=== PATIENT | male | born 1970 | race Caucasian/White ===

== ENCOUNTER 2020-08-28 22:49 | Inpatient (IN) | payer BC ==
[2020-08-28] MEDS ORDERED: Calcium Carbonate 500 MG ChewTAB PO PRN (22:52)
[2020-08-28] MEDS ORDERED: Guaifenesin DM 100-10/5 ML UDCUP PO PRN (22:52)
[2020-08-28] MEDS ORDERED: Zolpidem Tartrate 5 MG TAB PO PRN (22:52)
[2020-08-28] MEDS ORDERED: Dextrose 50% Abboject 50 ML SYRINGE SLOW IVP PRN (22:52)
[2020-08-28] MEDS ORDERED: Ondansetron PF 4 MG/2 ML Vial IVP PRN (22:52)
[2020-08-28] MEDS ORDERED: HYDROcodone/Acetaminophen 5/325 mg Tablet PO PRN ×2 (22:52)
[2020-08-28] MEDS ORDERED: Dextrose 5% in Water 1,000 ML IV PRN (22:52)
[2020-08-28] MEDS ORDERED: Ventolin HFA Inhaler 60 PUFF INHALER INH PRN (22:54)
[2020-08-28] MEDS: cefTRIAXone\\ROCEPHIN 1 GM in Sodium Chloride 0.9% 100 ML IVPB SCH (23:33)
[2020-08-28 23:55] LABS: ALT (SGPT) 31 U/L (8-55); AST (SGOT) 22 U/L (5-34); Albumin 3.5 g/dL (3.5-5.0); Alkaline Phosphatase 68 U/L (40-110); Anion Gap 15 mmol/L (10-20); BUN (Urea Nitrogen) 11 mg/dL (8.9-20.6); Bilirubin, Total 0.3 mg/dL (0.2-1.2); Calc. Creatinine Clearance 0 mL/min (70-130); Calcium 8.9 mg/dL (7.8-10.44); Carbon Dioxide 18 mmol/L (22-29); Chloride 108 mmol/L (98-107); Globulin 3.5 g/dL (2.4-3.5); Glucose 212 mg/dL (70-105); Potassium 4.4 mmol/L (3.5-5.1); Sodium 137 mmol/L (136-145)
[2020-08-29] MEDS: Azithromycin 500 MG in Sodium Chloride 0.9% 250 ML 250 ML IVPB SCH ×2 (00:26→22:59)
[2020-08-29] MEDS ORDERED: Sodium Chloride 0.9% 250 ML IVPB SCH (01:45)
[2020-08-29] MEDS: methylPREDNISolone Sod Succ/PF 125 MG/2 ML VIAL IVP SCH ×2 (02:34→03:30)
[2020-08-29] MEDS: Famotidine/PF 20 mg/2ml Vial SLOW IVP SCH ×2 (02:34→03:30)
[2020-08-29] MEDS: diphenhydrAMINE 50 MG/ML VIAL IVP SCH ×2 (02:35→03:30)
[2020-08-29] MEDS: HumaLOG 300 UNITS/3 ML VIAL SC PRN ×2 (04:40→20:17)
[2020-08-29] MEDS ORDERED: Guaifenesin DM 100-10/5 ML UDCUP ONE (04:54)
[2020-08-29] MEDS ORDERED: REMDESIVIR (EUA) 200 MG in Sodium Chloride 0.9% 250 ML 210 ML IV SCH ×3 (05:00→09:00)
[2020-08-29] MEDS: Acetaminophen 325 MG TAB PO PRN ×2 (05:38→18:00)
[2020-08-29 05:45] LABS: #Monocytes 0.4 10x3/uL (0.0-1.1); #Neutrophils 19.2 10x3/uL (1.5-8.4); %Basophils 0.2 % (0.0-2.0); %Lymphocytes 2.6 % (18.0-47.0); %Monocytes 1.9 % (0.0-10.0); %Neutrophils 94.2 % (40.0-75.0); Hemoglobin 13.5 g/dL (13.5-17.5); Mean Corpuscular HGB CONC 33.8 g/dL (32.0-36.0); Mean Corpuscular Hemoglobin 29.7 pg (27.0-33.0); Mean Corpuscular Volume 87.9 fl (81.2-95.1); Mean Platelet Volume 11.6 fl (7.4-10.4); Platelet Count 307 10x3/uL (150-450); RBC Distribution Width 12.6 % (11.5-14.5); Red Blood Cell (RBC) Count 4.55 10x6/uL (4.32-5.72); White Blood Cell (WBC) Count 20.4 10x3/uL (3.5-10.5)
[2020-08-29 06:06] LABS: ALT (SGPT) 30 U/L (8-55); AST (SGOT) 23 U/L (5-34); Albumin 3.3 g/dL (3.5-5.0); Alkaline Phosphatase 73 U/L (40-110); Anion Gap 14 mmol/L (10-20); BUN (Urea Nitrogen) 13 mg/dL (8.9-20.6); Bilirubin, Total 0.2 mg/dL (0.2-1.2); CRP (Inflammatory) 23.27 mg/dL (= or < 0.5); Calc. Creatinine Clearance 159 mL/min (70-130); Calcium 8.8 mg/dL (7.8-10.44); Carbon Dioxide 19 mmol/L (22-29); Chloride 109 mmol/L (98-107); Globulin 3.6 g/dL (2.4-3.5); Glucose 227 mg/dL (70-105); Potassium 4.2 mmol/L (3.5-5.1); Protein, Total 6.9 g/dL (6.0-8.3); Sodium 138 mmol/L (136-145)
[2020-08-29 06:22] LABS: Bilirubin Neg (Negative); Blood, Urine Negative (Negative); Clarity Clear (Clear); Glucose, Urine (Dipstick) >=1000 mg/dL (Negative); Ketone, Urine Negative (Negative); Leukocyte Negative (Negative); Nitrite Negative (Negative); Protein, Urine (Dipstick) 15 mg/dl (Neg-Trace); Specific Gravity, Urine 1.005 (1.002-1.036); Urobilinogen Normal mg/dL (Less than 2)
[2020-08-29 06:33] LABS: RBC/HPF None Seen HPF (0-3); Squamous Epithelial None Seen HPF (0-3); WBC/HPF None Seen HPF (0-3)
[2020-08-29 06:34] LABS: Bacteria/HPF None Seen HPF (None Seen); Strep pneumo Urine Ag NEGATIVE (NEGATIVE)
[2020-08-29 06:35] LABS: Legionella Urinary Ag Negative (Negative)
[2020-08-29] MEDS ORDERED: Labetalol HCl 100 MG/20 ML VIAL SLOW IVP PRN (06:57)
[2020-08-29] MEDS ORDERED: GUAIFENESIN SF SOLN 200 MG/10 ML UDCUP PO PRN (06:57)
[2020-08-29] MEDS ORDERED: Cepastat Lozenges 1 LOZ PO PRN (06:57)
[2020-08-29] MEDS ORDERED: Loratadine 10 MG TAB PO PRN (06:57)
[2020-08-29] MEDS ORDERED: Benzonatate 100 MG CAP PO PRN (06:57)
[2020-08-29] MEDS ORDERED: Ondansetron ODT 4 MG TAB PO PRN (06:57)
[2020-08-29] MEDS ORDERED: Sodium Chloride 0.65% Nasal 44 ML BOT EA NARE PRN (06:57)
[2020-08-29] MEDS ORDERED: Loperamide HCl 2 MG CAP PO PRN (06:57)
[2020-08-29] MEDS ORDERED: Eucerin (Mineral Oil/Petrolatum,White) 30 gm Jar TOP PRN (06:57)
[2020-08-29] MEDS: Zinc Gluconate 50 MG TAB PO SCH (08:35)
[2020-08-29] MEDS: Dexamethasone 4 mg/ml Vial SLOW IVP SCH (08:35)
[2020-08-29] MEDS: Aspirin 81 mg Enteric Coated Tablet PO SCH (08:35)
[2020-08-29] MEDS: Cholecalciferol 1,000 UNITS (25 MCG) TAB PO SCH (08:35)
[2020-08-29] MEDS: Metoprolol Tartrate 25 MG TAB PO SCH ×2 (08:35→20:17)
[2020-08-29] MEDS: Ascorbic Acid 500 mg Chewable Tablet PO SCH (08:35)
[2020-08-29] MEDS: Enoxaparin Sodium 40 MG/0.4 ML SYRINGE SC SCH ×2 (08:35→20:17)
[2020-08-29] MEDS ORDERED: Enoxaparin Sodium 40 MG/0.4 ML SYRINGE SC SCH (09:00)
[2020-08-29] MEDS: Levothyroxine 150 MCG TAB PO SCH (10:24)
[2020-08-29 14:07] LABS: Hemoglobin A1c 6.1 % (4.0-6.0)
[2020-08-29] MEDS ORDERED: Sodium Chloride 0.9% 100 ML ONE (22:22)
[2020-08-29] MEDS: cefTRIAXone\\ROCEPHIN 1 GM in Sodium Chloride 0.9% 100 ML IVPB SCH (23:00)
[2020-08-30] MEDS: Lorazepam 2 MG/ML VIAL SLOW IVP PRN (00:30)
[2020-08-30] MEDS ORDERED: Morphine 4 MG/ML VIAL SLOW IVP PRN (02:34)
[2020-08-30] MEDS ORDERED: Sodium Chloride 0.9% 500 ML IV SCH (02:50)
[2020-08-30] MEDS ORDERED: Rocuronium Bromide 10 MG/ML (10ML VIAL) ONE ×3 (03:02→08:00)
[2020-08-30] MEDS ORDERED: fentaNYL Citrate/PF 2,000 MCG in Sodium Chloride 0.9% 60 ML IV PRN (03:09)
[2020-08-30] MEDS ORDERED: Dexmedetomidine In 0.9 % NaCl 100 ML IVPB SCH (03:15)
[2020-08-30] MEDS ORDERED: Propofol 1,000 MG/100 ML VIAL IV ONE (03:31)
[2020-08-30 03:35] LABS: Actual Bicarbonate (HCO3a) 21.6 mEq/L (22-28); Base Excess (BEa) -3.4 mEq/L (-2.0 to +3.0); CO2 Tension 38.4 mmHg (35.0-45.0); Calcium, Ionized (arterial) 1.21 mmol/L (1.12-1.30); Carboxyhemoglobin (COHb) 0.3 gm% (0.0-3.0); Hemoglobin (Hb) 13.2 g/dL (14.0-18.0); Potassium - ABG Lab 4.3 mmol/L (3.70-5.30); Puncture Site LRA; pH, Arterial 7.37 (7.35-7.45)
[2020-08-30] MEDS: Propofol 1,000 MG/100 ML VIAL IV PRN ×7 (03:40→22:15)
[2020-08-30] MEDS: Fentanyl CADD 100 ML IVPB SCH ×3 (04:25→22:15)
[2020-08-30] MEDS ORDERED: Norepinephrine 8 MG/0.9% NS 250 ML ONE (04:34)
[2020-08-30] MEDS ORDERED: Rocuronium Bromide 10 MG/ML (10ML VIAL) IVPB SCH (04:45)
[2020-08-30] MEDS ORDERED: REMDESIVIR (EUA) 100 MG in Sodium Chloride 0.9% 250 ML 230 ML IV SCH ×2 (05:00→07:15)
[2020-08-30] MEDS ORDERED: Vecuronium 10 MG VIAL IV PRN (05:24)
[2020-08-30 06:07] LABS: Hemoglobin 12.3 g/dL (13.5-17.5); Mean Corpuscular HGB CONC 33.2 g/dL (32.0-36.0); Mean Corpuscular Hemoglobin 29.5 pg (27.0-33.0); Mean Platelet Volume 11.7 fl (7.4-10.4); Platelet Count 470 10x3/uL (150-450); Red Blood Cell (RBC) Count 4.17 10x6/uL (4.32-5.72); White Blood Cell (WBC) Count 22.7 10x3/uL (3.5-10.5)
[2020-08-30] MEDS: Levothyroxine 150 MCG TAB PO SCH (06:17)
[2020-08-30 06:23] LABS: ALT (SGPT) 31 U/L (8-55); AST (SGOT) 28 U/L (5-34); Albumin 3.1 g/dL (3.5-5.0); Alkaline Phosphatase 78 U/L (40-110); Anion Gap 17 mmol/L (10-20); BUN (Urea Nitrogen) 18 mg/dL (8.9-20.6); Bilirubin, Total 0.4 mg/dL (0.2-1.2); Calc. Creatinine Clearance 145 mL/min (70-130); Calcium 8.4 mg/dL (7.8-10.44); Carbon Dioxide 20 mmol/L (22-29); Chloride 108 mmol/L (98-107); Globulin 3.1 g/dL (2.4-3.5); Glucose 213 mg/dL (70-105); Potassium 4.6 mmol/L (3.5-5.1); Protein, Total 6.2 g/dL (6.0-8.3); Sodium 140 mmol/L (136-145)
[2020-08-30] MEDS: Norepinephrine 8 MG/0.9% NS 250 ML IVPB PRN ×2 (07:00→22:00)
[2020-08-30 07:04] LABS: MDiff Complete? YES
[2020-08-30 07:07] LABS: Band 6 % (5-11); Lymphocytes 5 % (21-51); Monocytes 5 % (0-10); Neutrophil 84 % (42-75)
[2020-08-30 07:08] LABS: Platelet Morphology Comment Appears Increased
[2020-08-30] MEDS: Adenosine 6 MG/2 ML VIAL ONE ×2 (07:20→09:08)
[2020-08-30] MEDS ORDERED: Adenosine 6 MG/2 ML VIAL IVP SCH ×2 (07:20→07:21)
[2020-08-30] MEDS ORDERED: Amiodarone 450 MG, Admixture Fee 1 EACH in Dextrose 5% in Water 250 ML IVPB SCH (07:30)
[2020-08-30] MEDS ORDERED: Electrolyte Replacement Protocol FS PRN (07:45)
[2020-08-30] MEDS: Vecuronium Bromide 50 MG, Admixture Fee 1 EACH in Sodium Chloride 0.9% 250 ML 250 ML IV SCH ×2 (08:00→17:57)
[2020-08-30] MEDS ORDERED: Amiodarone 150 MG, Admixture Fee 1 EACH in Dextrose 5% in Water 100 ML IVPB SCH (08:00)
[2020-08-30] MEDS: HumaLOG 300 UNITS/3 ML VIAL SC PRN ×2 (08:00→20:30)
[2020-08-30] MEDS: Pantoprazole 40 MG VIAL IVP SCH (09:00)
[2020-08-30] MEDS: Dexamethasone 4 mg/ml Vial SLOW IVP SCH (09:00)
[2020-08-30] MEDS: Aspirin 81 mg Enteric Coated Tablet PO SCH (09:00)
[2020-08-30] MEDS: REMDESIVIR (EUA) 100 MG in Sodium Chloride 0.9% 250 ML 230 ML IV SCH (09:00)
[2020-08-30] MEDS: Enoxaparin Sodium 40 MG/0.4 ML SYRINGE SC SCH ×2 (09:00→21:20)
[2020-08-30] MEDS ORDERED: Famotidine/PF 20 mg/2ml Vial SLOW IVP SCH (09:00)
[2020-08-30] MEDS: Cholecalciferol 1,000 UNITS (25 MCG) TAB PO SCH (09:00)
[2020-08-30] MEDS: Ascorbic Acid 500 mg Chewable Tablet PO SCH (09:00)
[2020-08-30] MEDS: Zinc Gluconate 50 MG TAB PO SCH (09:00)
[2020-08-30] MEDS: Metoprolol Tartrate 25 MG TAB PO SCH (09:03)
[2020-08-30 15:35] LABS: Glucose 309 mg/dL (70-105)
[2020-08-30] MEDS ORDERED: Phenylephrine 40 MG in Sodium Chloride 0.9% 250 ML 250 ML IVPB SCH (15:45)
[2020-08-30] MEDS ORDERED: Amiodarone In Dextrose 200 ML ONE (15:52)
[2020-08-30 21:27] LABS: Troponin I 0.011 ng/mL (< 0.028)
[2020-08-30] MEDS: Azithromycin 500 MG in Sodium Chloride 0.9% 250 ML 250 ML IVPB SCH (23:30)
[2020-08-31] MEDS: Propofol 1,000 MG/100 ML VIAL IV PRN ×7 (00:35→23:01)
[2020-08-31 00:59] LABS: ALV-art Gradient 574.775 mmHg (0-20); Actual Bicarbonate (HCO3a) 22.6 mEq/L (22-28); Base Excess (BEa) -1.8 mEq/L (-2.0 to +3.0); CO2 Tension 37.3 mmHg (35.0-45.0); Calcium, Ionized (arterial) 1.21 mmol/L (1.12-1.30); Carboxyhemoglobin (COHb) 0.3 gm% (0.0-3.0); Hemoglobin (Hb) 12.9 g/dL (14.0-18.0); O2 Tension (PaO2), arterial 91.6 mmHg (80.0-100.0); Potassium - ABG Lab 4.2 mmol/L (3.70-5.30); Puncture Site RRA
[2020-08-31] MEDS: Metoprolol Tartrate 25 MG TAB PO SCH ×3 (01:39→20:12)
[2020-08-31] MEDS: HumaLOG 300 UNITS/3 ML VIAL SC PRN ×3 (03:55→16:07)
[2020-08-31] MEDS: Levothyroxine 150 MCG TAB PO SCH (05:26)
[2020-08-31 05:28] LABS: #Monocytes 0.8 10x3/uL (0.0-1.1); #Neutrophils 13.6 10x3/uL (1.5-8.4); %Basophils 0.2 % (0.0-2.0); %Lymphocytes 5.5 % (18.0-47.0); %Monocytes 4.9 % (0.0-10.0); Hemoglobin 11.6 g/dL (13.5-17.5); Mean Corpuscular Hemoglobin 29.7 pg (27.0-33.0); Mean Corpuscular Volume 89.8 fl (81.2-95.1); Mean Platelet Volume 12.1 fl (7.4-10.4); Platelet Count 469 10x3/uL (150-450); RBC Distribution Width 12.7 % (11.5-14.5); Red Blood Cell (RBC) Count 3.91 10x6/uL (4.32-5.72); White Blood Cell (WBC) Count 15.5 10x3/uL (3.5-10.5)
[2020-08-31 05:35] LABS: Anion Gap 13 mmol/L (10-20); BUN (Urea Nitrogen) 17 mg/dL (8.9-20.6); Calc. Creatinine Clearance 157 mL/min (70-130); Calcium 8.1 mg/dL (7.8-10.44); Carbon Dioxide 23 mmol/L (22-29); Chloride 111 mmol/L (98-107); Glucose 242 mg/dL (70-105); Magnesium 2.5 mg/dL (1.6-2.6); Potassium 4.3 mmol/L (3.5-5.1); Sodium 143 mmol/L (136-145)
[2020-08-31 08:04] LABS: Troponin I 0.023 ng/mL (< 0.028)
[2020-08-31] MEDS: Ascorbic Acid 500 mg Chewable Tablet PO SCH (09:20)
[2020-08-31] MEDS: Cholecalciferol 1,000 UNITS (25 MCG) TAB PO SCH (09:21)
[2020-08-31] MEDS: Aspirin 81 mg Enteric Coated Tablet PO SCH (09:22)
[2020-08-31] MEDS: REMDESIVIR (EUA) 100 MG in Sodium Chloride 0.9% 250 ML 230 ML IV SCH (09:26)
[2020-08-31] MEDS: Pantoprazole 40 MG VIAL IVP SCH (09:26)
[2020-08-31] MEDS: Dexamethasone 4 mg/ml Vial SLOW IVP SCH (09:26)
[2020-08-31] MEDS: Enoxaparin Sodium 40 MG/0.4 ML SYRINGE SC SCH ×2 (09:26→20:12)
[2020-08-31] MEDS: Zinc Gluconate 50 MG TAB PO SCH (09:27)
[2020-08-31] MEDS ORDERED: Fentanyl CADD 100 ML ONE (10:19)
[2020-08-31] MEDS: Fentanyl CADD 100 ML IVPB SCH (14:00)
[2020-08-31] MEDS: Lorazepam 2 MG/ML VIAL SLOW IVP PRN (20:13)
[2020-08-31] MEDS: cefTRIAXone\\ROCEPHIN 1 GM in Sodium Chloride 0.9% 100 ML IVPB SCH ×2 (23:01)
[2020-08-31] MEDS: Azithromycin 500 MG in Sodium Chloride 0.9% 250 ML 250 ML IVPB SCH (23:02)
[2020-09-01] MEDS: Propofol 1,000 MG/100 ML VIAL IV PRN ×7 (02:10→22:15)
[2020-09-01 03:57] LABS: #Monocytes 0.9 10x3/uL (0.0-1.1); #Neutrophils 11.4 10x3/uL (1.5-8.4); %Basophils 0.2 % (0.0-2.0); %Lymphocytes 8.6 % (18.0-47.0); %Monocytes 6.5 % (0.0-10.0); %Neutrophils 82.6 % (40.0-75.0); Hemoglobin 11.9 g/dL (13.5-17.5); Mean Corpuscular HGB CONC 32.9 g/dL (32.0-36.0); Mean Corpuscular Hemoglobin 29.2 pg (27.0-33.0); Mean Corpuscular Volume 88.9 fl (81.2-95.1); Mean Platelet Volume 11.6 fl (7.4-10.4); Platelet Count 510 10x3/uL (150-450); RBC Distribution Width 12.5 % (11.5-14.5); Red Blood Cell (RBC) Count 4.07 10x6/uL (4.32-5.72); White Blood Cell (WBC) Count 13.8 10x3/uL (3.5-10.5)
[2020-09-01 04:13] LABS: Phosphorus 3.3 mg/dL (2.3-4.7)
[2020-09-01 04:17] LABS: ALT (SGPT) 32 U/L (8-55); AST (SGOT) 23 U/L (5-34); Albumin 2.6 g/dL (3.5-5.0); Alkaline Phosphatase 71 U/L (40-110); Anion Gap 15 mmol/L (10-20); BUN (Urea Nitrogen) 29 mg/dL (8.9-20.6); Bilirubin, Total 0.2 mg/dL (0.2-1.2); Calc. Creatinine Clearance 154 mL/min (70-130); Calcium 8.2 mg/dL (7.8-10.44); Carbon Dioxide 24 mmol/L (22-29); Chloride 111 mmol/L (98-107); Globulin 2.9 g/dL (2.4-3.5); Glucose 174 mg/dL (70-105); Magnesium 2.5 mg/dL (1.6-2.6); Potassium 4.5 mmol/L (3.5-5.1); Protein, Total 5.5 g/dL (6.0-8.3); Sodium 145 mmol/L (136-145)
[2020-09-01 04:45] LABS: ALV-art Gradient 259.975 mmHg (0-20); Actual Bicarbonate (HCO3a) 21.6 mEq/L (22-28); Base Excess (BEa) -2.1 mEq/L (-2.0 to +3.0); CO2 Tension 33.3 mmHg (35.0-45.0); Calcium, Ionized (arterial) 1.17 mmol/L (1.12-1.30); Carboxyhemoglobin (COHb) 0.3 gm% (0.0-3.0); Hemoglobin (Hb) 12.6 g/dL (14.0-18.0); O2 Tension (PaO2), arterial 54.9 mmHg (80.0-100.0); Potassium - ABG Lab 4.2 mmol/L (3.70-5.30); Puncture Site RBA; pH, Arterial 7.43 (7.35-7.45)
[2020-09-01] MEDS: Fentanyl CADD 100 ML IVPB SCH (05:29)
[2020-09-01] MEDS: Levothyroxine 150 MCG TAB PO SCH (06:15)
[2020-09-01] MEDS: Zinc Gluconate 50 MG TAB PO SCH (08:05)
[2020-09-01] MEDS: Metoprolol Tartrate 25 MG TAB PO SCH ×2 (08:06→23:44)
[2020-09-01] MEDS: Aspirin 81 mg Enteric Coated Tablet PO SCH (08:06)
[2020-09-01] MEDS: Cholecalciferol 1,000 UNITS (25 MCG) TAB PO SCH (08:06)
[2020-09-01] MEDS: Ascorbic Acid 500 mg Chewable Tablet PO SCH (08:06)
[2020-09-01] MEDS: Pantoprazole 40 MG VIAL IVP SCH (08:07)
[2020-09-01] MEDS: Enoxaparin Sodium 40 MG/0.4 ML SYRINGE SC SCH ×2 (08:07→22:00)
[2020-09-01] MEDS: Dexamethasone 4 mg/ml Vial SLOW IVP SCH (08:07)
[2020-09-01] MEDS: Vecuronium Bromide 50 MG, Admixture Fee 1 EACH in Sodium Chloride 0.9% 250 ML 250 ML IV SCH (08:30)
[2020-09-01] MEDS: REMDESIVIR (EUA) 100 MG in Sodium Chloride 0.9% 250 ML 230 ML IV SCH (09:43)
[2020-09-01] MEDS: HumaLOG 300 UNITS/3 ML VIAL SC PRN ×2 (16:27→22:00)
[2020-09-01] MEDS: Azithromycin 500 MG in Sodium Chloride 0.9% 250 ML 250 ML IVPB SCH (22:00)
[2020-09-02] MEDS: cefTRIAXone\\ROCEPHIN 1 GM in Sodium Chloride 0.9% 100 ML IVPB SCH (01:00)
[2020-09-02] MEDS: Propofol 1,000 MG/100 ML VIAL IV PRN ×6 (02:50→19:50)
[2020-09-02 04:36] LABS: #Eosinphils 0.1 10x3/uL (0.0-0.5); #Monocytes 0.6 10x3/uL (0.0-1.1); #Neutrophils 6.1 10x3/uL (1.5-8.4); %Basophils 0.2 % (0.0-2.0); %Eosinophils 0.6 % (0.0-6.0); %Lymphocytes 22.1 % (18.0-47.0); %Monocytes 6.5 % (0.0-10.0); Hemoglobin 12.5 g/dL (13.5-17.5); Mean Corpuscular HGB CONC 33.6 g/dL (32.0-36.0); Mean Corpuscular Hemoglobin 30.1 pg (27.0-33.0); Mean Corpuscular Volume 89.6 fl (81.2-95.1); Mean Platelet Volume 11.1 fl (7.4-10.4); Platelet Count 542 10x3/uL (150-450); RBC Distribution Width 12.2 % (11.5-14.5); Red Blood Cell (RBC) Count 4.15 10x6/uL (4.32-5.72); White Blood Cell (WBC) Count 9.1 10x3/uL (3.5-10.5)
[2020-09-02 04:56] LABS: ALT (SGPT) 65 U/L (8-55); AST (SGOT) 45 U/L (5-34); Albumin 2.5 g/dL (3.5-5.0); Alkaline Phosphatase 62 U/L (40-110); Anion Gap 14 mmol/L (10-20); BUN (Urea Nitrogen) 26 mg/dL (8.9-20.6); Bilirubin, Total 0.3 mg/dL (0.2-1.2); Calc. Creatinine Clearance 165 mL/min (70-130); Calcium 7.7 mg/dL (7.8-10.44); Carbon Dioxide 24 mmol/L (22-29); Chloride 108 mmol/L (98-107); Globulin 2.7 g/dL (2.4-3.5); Glucose 127 mg/dL (70-105); Magnesium 2.2 mg/dL (1.6-2.6); Potassium 4.3 mmol/L (3.5-5.1); Protein, Total 5.2 g/dL (6.0-8.3); Sodium 142 mmol/L (136-145)
[2020-09-02 05:16] LABS: ALV-art Gradient 370.525 mmHg (0-20); Actual Bicarbonate (HCO3a) 24.4 mEq/L (22-28); Base Excess (BEa) 2.4 mEq/L (-2.0 to +3.0); CO2 Tension 30.3 mmHg (35.0-45.0); Calcium, Ionized (arterial) 1.14 mmol/L (1.12-1.30); Carboxyhemoglobin (COHb) 0.3 gm% (0.0-3.0); Hemoglobin (Hb) 13.5 g/dL (14.0-18.0); O2 Tension (PaO2), arterial 90.7 mmHg (80.0-100.0); Potassium - ABG Lab 4.2 mmol/L (3.70-5.30); Puncture Site RRA; pH, Arterial 7.52 (7.35-7.45)
[2020-09-02] MEDS: Levothyroxine 150 MCG TAB PO SCH (06:00)
[2020-09-02] MEDS: Metoprolol Tartrate 25 MG TAB PO SCH ×2 (08:50→22:13)
[2020-09-02] MEDS: Dexamethasone 4 mg/ml Vial SLOW IVP SCH (09:10)
[2020-09-02] MEDS: Pantoprazole 40 MG VIAL IVP SCH (09:11)
[2020-09-02] MEDS: REMDESIVIR (EUA) 100 MG in Sodium Chloride 0.9% 250 ML 230 ML IV SCH (09:11)
[2020-09-02] MEDS: Enoxaparin Sodium 40 MG/0.4 ML SYRINGE SC SCH ×2 (09:12→22:12)
[2020-09-02] MEDS: Aspirin 81 mg Enteric Coated Tablet PO SCH (09:12)
[2020-09-02] MEDS: Cholecalciferol 1,000 UNITS (25 MCG) TAB PO SCH (09:12)
[2020-09-02] MEDS: Zinc Gluconate 50 MG TAB PO SCH (09:13)
[2020-09-02] MEDS: Ascorbic Acid 500 mg Chewable Tablet PO SCH (09:13)
[2020-09-02] MEDS: Fentanyl CADD 100 ML IVPB SCH ×2 (10:00→22:30)
[2020-09-02] MEDS: Norepinephrine 8 MG/0.9% NS 250 ML IVPB PRN (10:45)
[2020-09-02] MEDS: Lorazepam 2 MG/ML VIAL SLOW IVP PRN (11:46)
[2020-09-02] MEDS ORDERED: Fentanyl CADD 100 ML ONE (19:37)
[2020-09-02] MEDS: Azithromycin 500 MG in Sodium Chloride 0.9% 250 ML 250 ML IVPB SCH (22:35)
[2020-09-03] MEDS: cefTRIAXone\\ROCEPHIN 1 GM in Sodium Chloride 0.9% 100 ML IVPB SCH ×2 (00:10→23:54)
[2020-09-03] MEDS: Propofol 1,000 MG/100 ML VIAL IV PRN ×5 (03:37→23:55)
[2020-09-03 04:09] LABS: Hemoglobin 13.6 g/dL (13.5-17.5); Mean Corpuscular HGB CONC 33.4 g/dL (32.0-36.0); Mean Corpuscular Hemoglobin 29.6 pg (27.0-33.0); Mean Corpuscular Volume 88.5 fl (81.2-95.1); Mean Platelet Volume 10.8 fl (7.4-10.4); Platelet Count 634 10x3/uL (150-450); White Blood Cell (WBC) Count 13.2 10x3/uL (3.5-10.5)
[2020-09-03 04:17] LABS: #Monocytes 0.7 10x3/uL (0.0-1.1); #Neutrophils 10.1 10x3/uL (1.5-8.4); %Basophils 0.3 % (0.0-2.0); %Eosinophils 0.3 % (0.0-6.0); %Lymphocytes 14.7 % (18.0-47.0); %Monocytes 5.4 % (0.0-10.0); %Neutrophils 76.4 % (40.0-75.0)
[2020-09-03 04:20] LABS: ALT (SGPT) 83 U/L (8-55); AST (SGOT) 39 U/L (5-34); Albumin 2.7 g/dL (3.5-5.0); Alkaline Phosphatase 63 U/L (40-110); Anion Gap 15 mmol/L (10-20); BUN (Urea Nitrogen) 22 mg/dL (8.9-20.6); Bilirubin, Total 0.3 mg/dL (0.2-1.2); CRP (Inflammatory) 0.65 mg/dL (= or < 0.5); Calc. Creatinine Clearance 165 mL/min (70-130); Carbon Dioxide 27 mmol/L (22-29); Chloride 105 mmol/L (98-107); Globulin 3.2 g/dL (2.4-3.5); Glucose 131 mg/dL (70-105); Potassium 4.7 mmol/L (3.5-5.1); Protein, Total 5.9 g/dL (6.0-8.3); Sodium 142 mmol/L (136-145)
[2020-09-03] MEDS: Levothyroxine 150 MCG TAB PO SCH (05:40)
[2020-09-03] MEDS: Fentanyl CADD 100 ML IVPB SCH ×2 (08:53→19:40)
[2020-09-03] MEDS: Aspirin 81 mg Enteric Coated Tablet PO SCH (08:53)
[2020-09-03] MEDS: Zinc Gluconate 50 MG TAB PO SCH (08:53)
[2020-09-03] MEDS: Enoxaparin Sodium 40 MG/0.4 ML SYRINGE SC SCH ×2 (08:54→21:21)
[2020-09-03] MEDS: Pantoprazole 40 MG VIAL IVP SCH (08:54)
[2020-09-03] MEDS: Dexamethasone 4 mg/ml Vial SLOW IVP SCH (08:54)
[2020-09-03] MEDS: Ascorbic Acid 500 mg Chewable Tablet PO SCH (08:54)
[2020-09-03] MEDS: Metoprolol Tartrate 25 MG TAB PO SCH ×2 (08:55→20:04)
[2020-09-03] MEDS: HumaLOG 300 UNITS/3 ML VIAL SC PRN ×2 (16:05→22:00)
[2020-09-03] MEDS: Azithromycin 500 MG in Sodium Chloride 0.9% 250 ML 250 ML IVPB SCH (23:54)
[2020-09-04] MEDS: Levothyroxine 150 MCG TAB PO SCH (05:50)
[2020-09-04] MEDS: Fentanyl CADD 100 ML IVPB SCH ×2 (08:05→18:35)
[2020-09-04] MEDS: Propofol 1,000 MG/100 ML VIAL IV PRN ×5 (08:05→23:30)
[2020-09-04] MEDS: Dexamethasone 4 mg/ml Vial SLOW IVP SCH (08:27)
[2020-09-04] MEDS: Ascorbic Acid 500 mg Chewable Tablet PO SCH (08:28)
[2020-09-04] MEDS: Pantoprazole 40 MG VIAL IVP SCH (08:28)
[2020-09-04] MEDS: Enoxaparin Sodium 40 MG/0.4 ML SYRINGE SC SCH ×2 (08:28→19:39)
[2020-09-04] MEDS: Cholecalciferol 1,000 UNITS (25 MCG) TAB PO SCH (08:28)
[2020-09-04] MEDS: Zinc Gluconate 50 MG TAB PO SCH (08:29)
[2020-09-04] MEDS: Aspirin 81 mg Enteric Coated Tablet PO SCH (08:29)
[2020-09-04] MEDS: Metoprolol Tartrate 25 MG TAB PO SCH ×2 (08:29→19:39)
[2020-09-04] MEDS: HumaLOG 300 UNITS/3 ML VIAL SC PRN ×2 (10:50→15:25)
[2020-09-04] MEDS: Senokot S 8.6-50 MG TAB PO PRN (16:47)
[2020-09-04] MEDS: Azithromycin 500 MG in Sodium Chloride 0.9% 250 ML 250 ML IVPB SCH (22:51)
[2020-09-04] MEDS: cefTRIAXone\\ROCEPHIN 1 GM in Sodium Chloride 0.9% 100 ML IVPB SCH (23:45)
[2020-09-05] MEDS: Fentanyl CADD 100 ML IVPB SCH ×2 (03:00→15:07)
[2020-09-05] MEDS: Propofol 1,000 MG/100 ML VIAL IV PRN ×5 (03:43→23:30)
[2020-09-05] MEDS: Levothyroxine 150 MCG TAB PO SCH (05:51)
[2020-09-05] MEDS: Dexamethasone 4 mg/ml Vial SLOW IVP SCH (08:15)
[2020-09-05] MEDS: Senokot S 8.6-50 MG TAB PO PRN (08:15)
[2020-09-05] MEDS: Cholecalciferol 1,000 UNITS (25 MCG) TAB PO SCH (08:16)
[2020-09-05] MEDS: Pantoprazole 40 MG VIAL IVP SCH (08:16)
[2020-09-05] MEDS: Aspirin 81 mg Enteric Coated Tablet PO SCH (08:16)
[2020-09-05] MEDS: Enoxaparin Sodium 40 MG/0.4 ML SYRINGE SC SCH ×2 (08:16→20:22)
[2020-09-05] MEDS: Metoprolol Tartrate 25 MG TAB PO SCH ×2 (08:17→20:22)
[2020-09-05] MEDS: Ascorbic Acid 500 mg Chewable Tablet PO SCH (08:17)
[2020-09-05] MEDS: Zinc Gluconate 50 MG TAB PO SCH (08:17)
[2020-09-05 11:30] LABS: #Eosinphils 0.2 10x3/uL (0.0-0.5); #Monocytes 0.5 10x3/uL (0.0-1.1); #Neutrophils 9.5 10x3/uL (1.5-8.4); %Basophils 0.1 % (0.0-2.0); %Eosinophils 1.8 % (0.0-6.0); %Lymphocytes 10.8 % (18.0-47.0); %Monocytes 3.8 % (0.0-10.0); %Neutrophils 81.4 % (40.0-75.0); Hemoglobin 12.4 g/dL (13.5-17.5); Mean Corpuscular HGB CONC 32.7 g/dL (32.0-36.0); Mean Corpuscular Hemoglobin 29.6 pg (27.0-33.0); Mean Corpuscular Volume 90.5 fl (81.2-95.1); Mean Platelet Volume 11.1 fl (7.4-10.4); Platelet Count 520 10x3/uL (150-450); RBC Distribution Width 11.9 % (11.5-14.5); Red Blood Cell (RBC) Count 4.19 10x6/uL (4.32-5.72); White Blood Cell (WBC) Count 11.7 10x3/uL (3.5-10.5)
[2020-09-05 11:39] LABS: ALT (SGPT) 49 U/L (8-55); AST (SGOT) 19 U/L (5-34); Albumin 2.8 g/dL (3.5-5.0); Alkaline Phosphatase 58 U/L (40-110); Anion Gap 13 mmol/L (10-20); BUN (Urea Nitrogen) 31 mg/dL (8.9-20.6); Bilirubin, Total 0.4 mg/dL (0.2-1.2); Calc. Creatinine Clearance 154 mL/min (70-130); Calcium 8.3 mg/dL (7.8-10.44); Carbon Dioxide 28 mmol/L (22-29); Chloride 104 mmol/L (98-107); Globulin 2.6 g/dL (2.4-3.5); Glucose 170 mg/dL (70-105); Potassium 4.5 mmol/L (3.5-5.1); Protein, Total 5.4 g/dL (6.0-8.3); Sodium 140 mmol/L (136-145)
[2020-09-05] MEDS: HumaLOG 300 UNITS/3 ML VIAL SC PRN ×2 (16:00→22:20)
[2020-09-05] MEDS ORDERED: Furosemide 40 MG/4 ML VIAL SLOW IVP SCH (18:00)
[2020-09-06] MEDS: Fentanyl CADD 100 ML IVPB SCH ×2 (03:57→17:57)
[2020-09-06 04:03] LABS: #Eosinphils 0.1 10x3/uL (0.0-0.5); #Monocytes 0.8 10x3/uL (0.0-1.1); #Neutrophils 9.1 10x3/uL (1.5-8.4); %Basophils 0.2 % (0.0-2.0); %Eosinophils 1.1 % (0.0-6.0); %Lymphocytes 14.3 % (18.0-47.0); %Monocytes 6.5 % (0.0-10.0); %Neutrophils 75.9 % (40.0-75.0); Hemoglobin 13.5 g/dL (13.5-17.5); Mean Corpuscular HGB CONC 33.4 g/dL (32.0-36.0); Mean Corpuscular Hemoglobin 29.3 pg (27.0-33.0); Mean Corpuscular Volume 87.8 fl (81.2-95.1); Mean Platelet Volume 10.8 fl (7.4-10.4); Platelet Count 569 10x3/uL (150-450); RBC Distribution Width 12.1 % (11.5-14.5)
[2020-09-06 04:23] LABS: Anion Gap 16 mmol/L (10-20); BUN (Urea Nitrogen) 35 mg/dL (8.9-20.6); Calc. Creatinine Clearance 177 mL/min (70-130); Calcium 8.8 mg/dL (7.8-10.44); Carbon Dioxide 27 mmol/L (22-29); Chloride 101 mmol/L (98-107); Glucose 148 mg/dL (70-105); Magnesium 2.2 mg/dL (1.6-2.6); Potassium 3.9 mmol/L (3.5-5.1); Sodium 140 mmol/L (136-145)
[2020-09-06] MEDS: Propofol 1,000 MG/100 ML VIAL IV PRN ×5 (05:45→21:00)
[2020-09-06] MEDS: Levothyroxine 150 MCG TAB PO SCH (06:08)
[2020-09-06] MEDS: Enoxaparin Sodium 40 MG/0.4 ML SYRINGE SC SCH (09:22)
[2020-09-06] MEDS: Pantoprazole 40 MG VIAL IVP SCH (09:23)
[2020-09-06] MEDS: Lantus 1000 UNITS/10 ML VIAL SC SCH (09:23)
[2020-09-06] MEDS: Aspirin 81 mg Enteric Coated Tablet PO SCH (09:25)
[2020-09-06] MEDS: Zinc Gluconate 50 MG TAB PO SCH (09:25)
[2020-09-06] MEDS: Cholecalciferol 1,000 UNITS (25 MCG) TAB PO SCH (09:25)
[2020-09-06] MEDS: Ascorbic Acid 500 mg Chewable Tablet PO SCH (09:25)
[2020-09-06] MEDS: Metoprolol Tartrate 25 MG TAB PO SCH ×2 (09:28→20:53)
[2020-09-06] MEDS ORDERED: Furosemide 40 MG/4 ML VIAL SLOW IVP SCH (12:00)
[2020-09-06 13:10] LABS: Actual Bicarbonate (HCO3a) 27.4 mEq/L (22-28); Base Excess (BEa) 4.1 mEq/L (-2.0 to +3.0); CO2 Tension 36.6 mmHg (35.0-45.0); Calcium, Ionized (arterial) 1.16 mmol/L (1.12-1.30); Carboxyhemoglobin (COHb) 0.2 gm% (0.0-3.0); Hemoglobin (Hb) 14.3 g/dL (14.0-18.0); O2 Tension (PaO2), arterial 126.6 mmHg (80.0-100.0); Potassium - ABG Lab 3.7 mmol/L (3.70-5.30); Puncture Site RRA; pH, Arterial 7.49 (7.35-7.45)
[2020-09-06] MEDS: Norepinephrine 8 MG/0.9% NS 250 ML IVPB PRN (14:27)
[2020-09-06] MEDS ORDERED: Fentanyl CADD 100 ML ONE (17:56)
[2020-09-07] MEDS: Fentanyl CADD 100 ML IVPB SCH (02:00)
[2020-09-07] MEDS: Propofol 1,000 MG/100 ML VIAL IV PRN ×5 (02:59→20:30)
[2020-09-07 03:56] LABS: #Eosinphils 0.2 10x3/uL (0.0-0.5); #Monocytes 0.7 10x3/uL (0.0-1.1); #Neutrophils 8.5 10x3/uL (1.5-8.4); %Basophils 0.2 % (0.0-2.0); %Eosinophils 1.6 % (0.0-6.0); %Lymphocytes 23.8 % (18.0-47.0); %Monocytes 5.6 % (0.0-10.0); %Neutrophils 67.6 % (40.0-75.0); Mean Corpuscular HGB CONC 33.7 g/dL (32.0-36.0); Mean Corpuscular Hemoglobin 29.5 pg (27.0-33.0); Mean Corpuscular Volume 87.8 fl (81.2-95.1); Platelet Count 525 10x3/uL (150-450); RBC Distribution Width 12.1 % (11.5-14.5); Red Blood Cell (RBC) Count 4.74 10x6/uL (4.32-5.72); White Blood Cell (WBC) Count 12.5 10x3/uL (3.5-10.5)
[2020-09-07 04:14] LABS: ALT (SGPT) 97 U/L (8-55); AST (SGOT) 34 U/L (5-34); Albumin 3.2 g/dL (3.5-5.0); Alkaline Phosphatase 63 U/L (40-110); Anion Gap 18 mmol/L (10-20); BUN (Urea Nitrogen) 39 mg/dL (8.9-20.6); Bilirubin, Total 0.5 mg/dL (0.2-1.2); Calc. Creatinine Clearance 170 mL/min (70-130); Calcium 8.7 mg/dL (7.8-10.44); Carbon Dioxide 27 mmol/L (22-29); Chloride 99 mmol/L (98-107); Globulin 2.6 g/dL (2.4-3.5); Glucose 129 mg/dL (70-105); Potassium 3.5 mmol/L (3.5-5.1); Protein, Total 5.8 g/dL (6.0-8.3); Sodium 140 mmol/L (136-145)
[2020-09-07] MEDS: Levothyroxine 150 MCG TAB PO SCH (05:55)
[2020-09-07] MEDS: Pantoprazole 40 MG VIAL IVP SCH (08:01)
[2020-09-07] MEDS: Ascorbic Acid 500 mg Chewable Tablet PO SCH (08:01)
[2020-09-07] MEDS: Aspirin 81 mg Enteric Coated Tablet PO SCH (08:01)
[2020-09-07] MEDS: Metoprolol Tartrate 25 MG TAB PO SCH (08:01)
[2020-09-07] MEDS: Zinc Gluconate 50 MG TAB PO SCH (08:01)
[2020-09-07] MEDS: Cholecalciferol 1,000 UNITS (25 MCG) TAB PO SCH (08:01)
[2020-09-07] MEDS: Lantus 1000 UNITS/10 ML VIAL SC SCH (08:03)
[2020-09-07] MEDS ORDERED: Furosemide 40 MG/4 ML VIAL SLOW IVP SCH (12:45)
[2020-09-07] MEDS: Senokot S 8.6-50 MG TAB PO PRN ×2 (14:02→20:30)
[2020-09-07] MEDS ORDERED: Fentanyl CADD 100 ML ONE (17:13)
[2020-09-07] MEDS: Lorazepam 2 MG/ML VIAL SLOW IVP PRN (20:30)
[2020-09-08] MEDS: Propofol 1,000 MG/100 ML VIAL IV PRN ×3 (00:31→07:51)
[2020-09-08 04:53] LABS: #Eosinphils 0.1 10x3/uL (0.0-0.5); #Monocytes 0.7 10x3/uL (0.0-1.1); #Neutrophils 12.2 10x3/uL (1.5-8.4); %Basophils 0.2 % (0.0-2.0); %Eosinophils 0.7 % (0.0-6.0); %Lymphocytes 8.9 % (18.0-47.0); %Monocytes 4.5 % (0.0-10.0); %Neutrophils 85.1 % (40.0-75.0); Hemoglobin 14.2 g/dL (13.5-17.5); Mean Corpuscular HGB CONC 33.2 g/dL (32.0-36.0); Mean Corpuscular Hemoglobin 29.7 pg (27.0-33.0); Mean Corpuscular Volume 89.5 fl (81.2-95.1); Mean Platelet Volume 11.7 fl (7.4-10.4); Platelet Count 439 10x3/uL (150-450); Red Blood Cell (RBC) Count 4.78 10x6/uL (4.32-5.72); White Blood Cell (WBC) Count 14.3 10x3/uL (3.5-10.5)
[2020-09-08 05:00] LABS: Anion Gap 17 mmol/L (10-20); BUN (Urea Nitrogen) 36 mg/dL (8.9-20.6); Calc. Creatinine Clearance 170 mL/min (70-130); Carbon Dioxide 27 mmol/L (22-29); Chloride 98 mmol/L (98-107); Glucose 149 mg/dL (70-105); Potassium 3.3 mmol/L (3.5-5.1); Sodium 139 mmol/L (136-145)
[2020-09-08] MEDS: Levothyroxine 150 MCG TAB PO SCH (05:08)
[2020-09-08] MEDS ORDERED: Potassium Chloride 40 MEQ in Premix Bag 1 BAG IVPB ONE (06:15)
[2020-09-08] MEDS ORDERED: Fentanyl CADD 100 ML ONE (06:20)
[2020-09-08] MEDS: Pantoprazole 40 MG VIAL IVP SCH (07:51)
[2020-09-08] MEDS: Ascorbic Acid 500 mg Chewable Tablet PO SCH (07:52)
[2020-09-08] MEDS: Aspirin 81 mg Enteric Coated Tablet PO SCH (07:52)
[2020-09-08] MEDS: Zinc Gluconate 50 MG TAB PO SCH (07:52)
[2020-09-08] MEDS: Lantus 1000 UNITS/10 ML VIAL SC SCH (07:52)
[2020-09-08] MEDS: Cholecalciferol 1,000 UNITS (25 MCG) TAB PO SCH (07:52)
[2020-09-08] MEDS ORDERED: Furosemide 40 MG/4 ML VIAL SLOW IVP SCH (11:15)
[2020-09-08] MEDS: HumaLOG 300 UNITS/3 ML VIAL SC PRN ×2 (11:51→17:34)
[2020-09-08 14:38] LABS: Actual Bicarbonate (HCO3a) 33.7 mEq/L (22-28); Base Excess (BEa) 9.2 mEq/L (-2.0 to +3.0); CO2 Tension 44.7 mmHg (35.0-45.0); Calcium, Ionized (arterial) 1.21 mmol/L (1.12-1.30); Carboxyhemoglobin (COHb) 0.5 gm% (0.0-3.0); Hemoglobin (Hb) 15.4 g/dL (14.0-18.0); Potassium - ABG Lab 3.5 mmol/L (3.70-5.30); Puncture Site RRA
[2020-09-08 14:40] LABS: ALV-art Gradient 160.325 mmHg (0-20)
[2020-09-09 03:08] LABS: #Eosinphils 0.1 10x3/uL (0.0-0.5); #Monocytes 0.7 10x3/uL (0.0-1.1); #Neutrophils 12.6 10x3/uL (1.5-8.4); %Basophils 0.3 % (0.0-2.0); %Eosinophils 0.3 % (0.0-6.0); %Lymphocytes 8.8 % (18.0-47.0); %Monocytes 4.6 % (0.0-10.0); %Neutrophils 85.7 % (40.0-75.0); Hemoglobin 14.7 g/dL (13.5-17.5); Mean Corpuscular HGB CONC 33.2 g/dL (32.0-36.0); Mean Corpuscular Hemoglobin 29.3 pg (27.0-33.0); Mean Corpuscular Volume 88.2 fl (81.2-95.1); Mean Platelet Volume 11.2 fl (7.4-10.4); Platelet Count 396 10x3/uL (150-450); RBC Distribution Width 12.3 % (11.5-14.5); Red Blood Cell (RBC) Count 5.02 10x6/uL (4.32-5.72); White Blood Cell (WBC) Count 14.7 10x3/uL (3.5-10.5)
[2020-09-09 03:22] LABS: Anion Gap 16 mmol/L (10-20); BUN (Urea Nitrogen) 26 mg/dL (8.9-20.6); Calc. Creatinine Clearance 184 mL/min (70-130); Calcium 9.1 mg/dL (7.8-10.44); Carbon Dioxide 29 mmol/L (22-29); Chloride 97 mmol/L (98-107); Glucose 127 mg/dL (70-105); Potassium 3.6 mmol/L (3.5-5.1); Sodium 138 mmol/L (136-145)
[2020-09-09] MEDS: Levothyroxine 150 MCG TAB PO SCH (06:05)
[2020-09-09] MEDS: Ascorbic Acid 500 mg Chewable Tablet PO SCH (08:05)
[2020-09-09] MEDS: Furosemide 40 MG/4 ML VIAL SLOW IVP SCH (08:05)
[2020-09-09] MEDS: Zinc Gluconate 50 MG TAB PO SCH (08:05)
[2020-09-09] MEDS: Aspirin 81 mg Enteric Coated Tablet PO SCH (08:05)
[2020-09-09] MEDS: Cholecalciferol 1,000 UNITS (25 MCG) TAB PO SCH (08:05)
[2020-09-09] MEDS: Pantoprazole 40 MG VIAL IVP SCH (08:05)
[2020-09-09] MEDS: Lantus 1000 UNITS/10 ML VIAL SC SCH (08:06)
[2020-09-10 04:16] LABS: #Basophils 0.1 10x3/uL (0.0-0.2); #Eosinphils 0.2 10x3/uL (0.0-0.5); #Monocytes 0.9 10x3/uL (0.0-1.1); #Neutrophils 8.7 10x3/uL (1.5-8.4); %Basophils 0.6 % (0.0-2.0); %Eosinophils 1.7 % (0.0-6.0); %Lymphocytes 14.9 % (18.0-47.0); %Monocytes 7.4 % (0.0-10.0); Hemoglobin 15.5 g/dL (13.5-17.5); Mean Corpuscular Hemoglobin 29.3 pg (27.0-33.0); Mean Corpuscular Volume 88.7 fl (81.2-95.1); Mean Platelet Volume 11.5 fl (7.4-10.4); Platelet Count 385 10x3/uL (150-450); RBC Distribution Width 12.5 % (11.5-14.5); Red Blood Cell (RBC) Count 5.29 10x6/uL (4.32-5.72); White Blood Cell (WBC) Count 11.7 10x3/uL (3.5-10.5)
[2020-09-10 04:31] LABS: Anion Gap 15 mmol/L (10-20); BUN (Urea Nitrogen) 20 mg/dL (8.9-20.6); Calc. Creatinine Clearance 172 mL/min (70-130); Carbon Dioxide 29 mmol/L (22-29); Chloride 96 mmol/L (98-107); Glucose 120 mg/dL (70-105); Potassium 3.3 mmol/L (3.5-5.1); Sodium 137 mmol/L (136-145)
[2020-09-10] MEDS: Levothyroxine 150 MCG TAB PO SCH (06:02)
[2020-09-10] MEDS: Pantoprazole 40 MG VIAL IVP SCH (08:45)
[2020-09-10] MEDS: Zinc Gluconate 50 MG TAB PO SCH (08:45)
[2020-09-10] MEDS: Cholecalciferol 1,000 UNITS (25 MCG) TAB PO SCH (08:45)
[2020-09-10] MEDS: Lantus 1000 UNITS/10 ML VIAL SC SCH (08:45)
[2020-09-10] MEDS: Furosemide 40 MG/4 ML VIAL SLOW IVP SCH (08:45)
[2020-09-10] MEDS: Ascorbic Acid 500 mg Chewable Tablet PO SCH (08:45)
[2020-09-10] MEDS: Aspirin 81 mg Enteric Coated Tablet PO SCH (08:45)
[2020-09-10] MEDS ORDERED: Potassium Chloride 20 MEQ TAB PO SCH (14:45)
[2020-09-11 06:00] LABS: #Basophils 0.1 10x3/uL (0.0-0.2); #Eosinphils 0.3 10x3/uL (0.0-0.5); #Monocytes 1.2 10x3/uL (0.0-1.1); #Neutrophils 10.8 10x3/uL (1.5-8.4); %Basophils 0.7 % (0.0-2.0); %Eosinophils 2.1 % (0.0-6.0); %Lymphocytes 12.6 % (18.0-47.0); %Monocytes 8.6 % (0.0-10.0); %Neutrophils 75.4 % (40.0-75.0); Hemoglobin 16.6 g/dL (13.5-17.5); Mean Corpuscular HGB CONC 33.1 g/dL (32.0-36.0); Mean Corpuscular Volume 87.8 fl (81.2-95.1); Mean Platelet Volume 12.1 fl (7.4-10.4); Platelet Count 363 10x3/uL (150-450); RBC Distribution Width 12.7 % (11.5-14.5); Red Blood Cell (RBC) Count 5.72 10x6/uL (4.32-5.72); White Blood Cell (WBC) Count 14.3 10x3/uL (3.5-10.5)
[2020-09-11] MEDS: Levothyroxine 150 MCG TAB PO SCH (06:07)
[2020-09-11 06:12] LABS: Anion Gap 17 mmol/L (10-20); BUN (Urea Nitrogen) 25 mg/dL (8.9-20.6); Calc. Creatinine Clearance 152 mL/min (70-130); Calcium 9.3 mg/dL (7.8-10.44); Carbon Dioxide 25 mmol/L (22-29); Chloride 96 mmol/L (98-107); Glucose 145 mg/dL (70-105); Potassium 3.1 mmol/L (3.5-5.1); Sodium 135 mmol/L (136-145)
[2020-09-11] MEDS ORDERED: Potassium Chloride 20 MEQ TAB PO SCH (08:30)
[2020-09-11] MEDS: Zinc Gluconate 50 MG TAB PO SCH (08:39)
[2020-09-11] MEDS: Ascorbic Acid 500 mg Chewable Tablet PO SCH (08:39)
[2020-09-11] MEDS: Pantoprazole 40 MG VIAL IVP SCH (08:39)
[2020-09-11] MEDS: Furosemide 40 MG/4 ML VIAL SLOW IVP SCH (08:39)
[2020-09-11] MEDS: Lantus 1000 UNITS/10 ML VIAL SC SCH (08:39)
[2020-09-11] MEDS: Aspirin 81 mg Enteric Coated Tablet PO SCH (08:40)
[2020-09-11] MEDS: Cholecalciferol 1,000 UNITS (25 MCG) TAB PO SCH (08:40)
[2020-09-11] MEDS: HumaLOG 300 UNITS/3 ML VIAL SC PRN (12:13)
[2020-09-11] MEDS ORDERED: diphenhydrAMINE 25 MG CAP PO SCH (23:15)
[2020-09-12] MEDS ORDERED: methylPREDNISolone Sod Succ 40 MG VIAL IVP SCH (05:30)
[2020-09-12] MEDS ORDERED: diphenhydrAMINE 50 MG/ML VIAL IVP SCH (05:30)
[2020-09-12] MEDS: Levothyroxine 150 MCG TAB PO SCH (06:13)
[2020-09-12 06:25] LABS: #Basophils 0.1 10x3/uL (0.0-0.2); #Eosinphils 0.5 10x3/uL (0.0-0.5); #Neutrophils 6.1 10x3/uL (1.5-8.4); %Basophils 1.1 % (0.0-2.0); %Eosinophils 5.5 % (0.0-6.0); %Lymphocytes 21.2 % (18.0-47.0); %Neutrophils 61.7 % (40.0-75.0); Hemoglobin 15.7 g/dL (13.5-17.5); Mean Corpuscular HGB CONC 33.5 g/dL (32.0-36.0); Mean Corpuscular Hemoglobin 29.6 pg (27.0-33.0); Mean Corpuscular Volume 88.1 fl (81.2-95.1); Mean Platelet Volume 12.2 fl (7.4-10.4); Platelet Count 342 10x3/uL (150-450); RBC Distribution Width 12.6 % (11.5-14.5); Red Blood Cell (RBC) Count 5.31 10x6/uL (4.32-5.72); White Blood Cell (WBC) Count 9.8 10x3/uL (3.5-10.5)
[2020-09-12 06:31] LABS: Anion Gap 15 mmol/L (10-20); BUN (Urea Nitrogen) 25 mg/dL (8.9-20.6); Calc. Creatinine Clearance 159 mL/min (70-130); Calcium 9.2 mg/dL (7.8-10.44); Carbon Dioxide 29 mmol/L (22-29); Chloride 94 mmol/L (98-107); Glucose 118 mg/dL (70-105); Potassium 3.3 mmol/L (3.5-5.1); Sodium 135 mmol/L (136-145)
[2020-09-12] MEDS: Furosemide 40 MG/4 ML VIAL SLOW IVP SCH (08:17)
[2020-09-12] MEDS: Pantoprazole 40 MG VIAL IVP SCH (08:17)
[2020-09-12] MEDS: Ascorbic Acid 500 mg Chewable Tablet PO SCH (08:17)
[2020-09-12] MEDS: Aspirin 81 mg Enteric Coated Tablet PO SCH (08:18)
[2020-09-12] MEDS: Zinc Gluconate 50 MG TAB PO SCH (08:18)
[2020-09-12] MEDS: Lantus 1000 UNITS/10 ML VIAL SC SCH (08:18)
[2020-09-12] MEDS: Cholecalciferol 1,000 UNITS (25 MCG) TAB PO SCH (08:18)
[2020-09-12] MEDS ORDERED: Potassium Chloride 20 MEQ TAB PO SCH ×2 (09:00→14:00)
[2020-09-13] MEDS: Levothyroxine 150 MCG TAB PO SCH (07:12)
[2020-09-13 08:06] LABS: #Basophils 0.1 10x3/uL (0.0-0.2); #Eosinphils 0.7 10x3/uL (0.0-0.5); #Monocytes 0.9 10x3/uL (0.0-1.1); #Neutrophils 6.2 10x3/uL (1.5-8.4); %Basophils 0.9 % (0.0-2.0); %Eosinophils 6.9 % (0.0-6.0); %Lymphocytes 23.3 % (18.0-47.0); %Monocytes 8.8 % (0.0-10.0); %Neutrophils 59.8 % (40.0-75.0); Hemoglobin 14.7 g/dL (13.5-17.5); Mean Corpuscular HGB CONC 33.8 g/dL (32.0-36.0); Mean Corpuscular Hemoglobin 29.6 pg (27.0-33.0); Mean Corpuscular Volume 87.7 fl (81.2-95.1); Mean Platelet Volume 11.9 fl (7.4-10.4); Platelet Count 347 10x3/uL (150-450); RBC Distribution Width 12.5 % (11.5-14.5); Red Blood Cell (RBC) Count 4.96 10x6/uL (4.32-5.72); White Blood Cell (WBC) Count 10.3 10x3/uL (3.5-10.5)
[2020-09-13] MEDS ORDERED: Pantoprazole 40 MG VIAL ONE (09:08)
[2020-09-13] MEDS: Pantoprazole 40 MG VIAL IVP SCH (09:12)
[2020-09-13] MEDS: Aspirin 81 mg Enteric Coated Tablet PO SCH (09:13)
[2020-09-13] MEDS: Zinc Gluconate 50 MG TAB PO SCH (09:13)
[2020-09-13] MEDS: Furosemide 40 MG/4 ML VIAL SLOW IVP SCH (09:13)
[2020-09-13] MEDS: Cholecalciferol 1,000 UNITS (25 MCG) TAB PO SCH (09:13)
[2020-09-13] MEDS: Ascorbic Acid 500 mg Chewable Tablet PO SCH (09:13)
[2020-09-13 09:14] LABS: Anion Gap 16 mmol/L (10-20); BUN (Urea Nitrogen) 29 mg/dL (8.9-20.6); Calc. Creatinine Clearance 159 mL/min (70-130); Calcium 9.1 mg/dL (7.8-10.44); Carbon Dioxide 28 mmol/L (22-29); Chloride 93 mmol/L (98-107); Glucose 127 mg/dL (70-105); Potassium 3.4 mmol/L (3.5-5.1); Sodium 134 mmol/L (136-145)
[2020-09-13] MEDS: Lantus 1000 UNITS/10 ML VIAL SC SCH (09:16)
[2020-09-13] MEDS ORDERED: Potassium Chloride 20 MEQ TAB PO SCH (10:00)
[2020-09-13 10:25] VITALS: BMI 31.6
[2020-09-14] MEDS: Levothyroxine 150 MCG TAB PO SCH (05:46)
[2020-09-14] MEDS ORDERED: Pantoprazole 40 MG VIAL ONE (08:26)
[2020-09-14] MEDS: Furosemide 40 MG/4 ML VIAL SLOW IVP SCH (08:30)
[2020-09-14] MEDS: Ascorbic Acid 500 mg Chewable Tablet PO SCH (08:30)
[2020-09-14] MEDS: Aspirin 81 mg Enteric Coated Tablet PO SCH (08:31)
[2020-09-14] MEDS: Pantoprazole 40 MG VIAL IVP SCH (08:31)
[2020-09-14] MEDS: Lantus 1000 UNITS/10 ML VIAL SC SCH (08:31)
[2020-09-14] MEDS: Cholecalciferol 1,000 UNITS (25 MCG) TAB PO SCH (08:31)
[2020-09-14] MEDS: Zinc Gluconate 50 MG TAB PO SCH (08:32)
[2020-09-14 11:15] LABS: #Basophils 0.1 10x3/uL (0.0-0.2); #Eosinphils 0.6 10x3/uL (0.0-0.5); #Monocytes 0.8 10x3/uL (0.0-1.1); #Neutrophils 5.5 10x3/uL (1.5-8.4); %Eosinophils 6.5 % (0.0-6.0); %Lymphocytes 21.8 % (18.0-47.0); %Monocytes 8.6 % (0.0-10.0); %Neutrophils 61.9 % (40.0-75.0); Hemoglobin 15.4 g/dL (13.5-17.5); Mean Corpuscular HGB CONC 33.8 g/dL (32.0-36.0); Mean Corpuscular Hemoglobin 29.7 pg (27.0-33.0); Mean Corpuscular Volume 87.9 fl (81.2-95.1); Mean Platelet Volume 11.9 fl (7.4-10.4); Platelet Count 368 10x3/uL (150-450); RBC Distribution Width 12.4 % (11.5-14.5); Red Blood Cell (RBC) Count 5.19 10x6/uL (4.32-5.72); White Blood Cell (WBC) Count 8.9 10x3/uL (3.5-10.5)
[2020-09-14 11:59] LABS: Anion Gap 17 mmol/L (10-20); BUN (Urea Nitrogen) 27 mg/dL (8.9-20.6); Calc. Creatinine Clearance 143 mL/min (70-130); Carbon Dioxide 28 mmol/L (22-29); Chloride 92 mmol/L (98-107); Potassium 3.5 mmol/L (3.5-5.1); Sodium 133 mmol/L (136-145)
[2020-09-14 12:00] LABS: Calcium 9.5 mg/dL (7.8-10.44); Glucose 178 mg/dL (70-105)
[2020-09-14 13:44] VITALS: BP 135/116; TEMP 98.8
== END 2020-09-14 15:41 | disposition home or self-care (01) | DRG 870 ==
LOC: CSHTELE 22:49 → OBSVTOIN 22:52 → CSHICU 08-30 04:09 → CSHTELE 09-10 18:51
PROVIDERS: ADMIT Family Medicine; ATTEND Internal Medicine
PROC: 8E0ZXY6 Isolation (ICD-10-PCS; 2020-08-28)
PROC: XW033E5 Introduction of Remdesivir Anti-infective into Peripheral Vein, Percutaneous Approach, New Technology Group 5 (ICD-10-PCS; principal; 2020-08-29)
PROC: XW033H5 Introduction of Tocilizumab into Peripheral Vein, Percutaneous Approach, New Technology Group 5 (ICD-10-PCS; 2020-08-29)
PROC: 5A1955Z Respiratory Ventilation, Greater than 96 Consecutive Hours (ICD-10-PCS; 2020-08-30)
PROC: 3E033XZ Introduction of Vasopressor into Peripheral Vein, Percutaneous Approach (ICD-10-PCS; 2020-08-30)
PROC: 0BH17EZ Insertion of Endotracheal Airway into Trachea, Via Natural or Artificial Opening (ICD-10-PCS; 2020-08-30)
PROC: 02H633Z Insertion of Infusion Device into Right Atrium, Percutaneous Approach (ICD-10-PCS; 2020-08-30)
PROC: 5A09357 Assistance with Respiratory Ventilation, Less than 24 Consecutive Hours, Continuous Positive Airway Pressure (ICD-10-PCS; 2020-08-30)
PROC: 0B21XEZ Change Endotracheal Airway in Trachea, External Approach (ICD-10-PCS; 2020-09-03)
DX: A41.89 Other specified sepsis (principal); U07.1 COVID-19; J12.82 Pneumonia due to coronavirus disease 2019; J15.9 Unspecified bacterial pneumonia; J80 Acute respiratory distress syndrome; I47.1 Supraventricular tachycardia; E03.9 Hypothyroidism, unspecified; I10 Essential (primary) hypertension; R73.9 Hyperglycemia, unspecified; E66.9 Obesity, unspecified; T38.0X5A Adverse effect of glucocorticoids and synthetic analogues, initial encounter; I95.2 Hypotension due to drugs; T39.95XA Adverse effect of unspecified nonopioid analgesic, antipyretic and antirheumatic, initial encounter; E78.2 Mixed hyperlipidemia; I48.0 Paroxysmal atrial fibrillation; Z88.2 Allergy status to sulfonamides; Z90.49 Acquired absence of other specified parts of digestive tract; Z78.1 Physical restraint status; Z79.890 Hormone replacement therapy; Z68.31 Body mass index [BMI] 31.0-31.9, adult; Z82.49 Family history of ischemic heart disease and other diseases of the circulatory system; Z91.041 Radiographic dye allergy status
CPT/HCPCS: 31500; 36415; 36416; 36600; 71045; 78451; 80048; 80053; 81001; 82728; 82805; 83036; 83605; 83735; 84100; 84132; 84145; 84439; 84443; 84484; 85025; 85379; 86140; 87449; 87899; 93005; 93010; 93306; 93970; 94002; 94003; 94640; 94660; 94760; A9540; C9113; J0153; J0282; J0456; J0696; J1100; J1200; J1650; J1815; J1940; J2060; J2405; J2704; J2920; J2930; J3010; J3262; J3480; J3490; J7030; J7050; J7070; Q0163; S0028